=== PATIENT | male | born 1945 | race Caucasian/White ===

== ENCOUNTER → 2016-09-22 | Outpatient (CLI) | payer OTHER | LOC: CIMAGING 14:40 | PROVIDERS: ATTEND Internal Medicine | DX: M25.551 Pain in right hip (principal) | CPT/HCPCS: 73502-PO ==

== ENCOUNTER 2017-11-09 06:20 | Inpatient (IN) | payer OTHER ==
[2017-11-09] MEDS ORDERED: NS 1,000 ML IV ONE (06:27)
[2017-11-09] MEDS ORDERED: HYDROmorphONE/DILAUDID 1 MG/ML INJ ONE (06:48)
[2017-11-09] MEDS ORDERED: ONDANSETRON 4 MG/2 ML VIAL ONE (06:48)
[2017-11-09] MEDS ORDERED: HYDROmorphONE/DILAUDID 2 MG/ML INJ IVP ONE ×2 (06:49→07:44)
[2017-11-09] MEDS ORDERED: ONDANSETRON 4 MG/2 ML VIAL IVP ONE (06:49)
[2017-11-09 06:53] LABS: PLATELET COUNT 269 10^3/uL (150-400)
--- NOTE | 2017-11-09 07:03 | EDPHY ---
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 It seemed to improve edema to bit but returned around 2:00 a.m.. He has been up since then with cramping and uncomfortable diffuse pain. He has felt nauseous but has not vomited. No diarrhea. No urinary symptoms. He does have a history of left inguinal hernia with resultant nerve damage that caused chronic abdominal pain and tell he had that nerve "snipped" by Dr. Lipscomb several years ago. No chest pain. No shortness of breath. No fever. No diaphoresis. Severity: Moderate Modifying factors: None REVIEW OF SYSTEMS: Constitutional: denies: chills, fever, recent illness, recent injury EENTM: denies: blurred vision, double vision, nose congestion Respiratory: denies: cough, shortness of breath Cardiac: denies: chest pain, irregular heart rate, lightheadedness, palpitations Gastrointestinal/Abdominal: See HPI denies: diarrhea, nausea, vomiting, blood streaked stools Genitourinary: denies: dysuria, frequency, hematuria, pain Musculoskeletal: denies: joint pain, muscle pain Skin: denies: lesions, rash, jaundice, bruising Neurological: denies: headache, numbness, paresthesia, tingling, dizziness, weakness Hematologic/Lymphatic: denies: blood clots, easy bleeding, easy bruising Immunologic/allergic: denies: HIV/AIDS, transplant 10 systems reviewed and negative except as noted EXAM: GENERAL: Well-appearing, well-nourished and in no acute distress. HEAD: Atraumatic, normocephalic. EYES: Pupils equal round and reactive to light, extraocular movements intact, sclera anicteric, conjunctiva are normal. ENT: TMs normal, nares patent, oropharynx clear without exudates. Moist mucous membranes. NECK: Normal range of motion, supple without lymphadenopathy or JVD. LUNGS: Breath sounds clear to auscultation bilaterally and equal. No wheezes rales or rhonchi. HEART: Regular rate and rhythm without murmurs, rubs or gallops. ABDOMEN: Mildly distended diffusely, nontender, normoactive bowel sounds. No guarding, no rebound. No masses appreciated. BACK: No CVA tenderness, no spinal tenderness, step-offs or deformities EXTREMITIES: Normal range of motion, no pitting or edema. No clubbing or cyanosis. NEUROLOGICAL: Cranial nerves II through XII grossly intact. Normal speech, normal gait. 5/5 strength, normal movement in all extremities, normal sensation , normal reflexes PSYCH: Normal mood, normal affect. SKIN: Warm, dry, normal turgor, no visible rashes or lesions. Source: Patient Exam Limitations: No limitations - Personal History Current Tetanus/Diphtheria Vaccine: Yes Tetanus Vaccine Date: 2011 - Medical/Surgical History Hx Asthma: No Hx Chronic Respiratory Disease: No Hx Diabetes: No Hx Cardiac Disease: No Hx Renal Disease: No Hx Cirrhosis: No Hx Alcoholism: No Hx HIV/AIDS: No Other PMH: Chronic fatigue (in [place] for treatment). Hypothyroid/Nahed' s. anal sphincterotomy / fissure. l inguinal hernia. borderline HTN, GERD, BPH - Family History Significant Family History: No pertinent family hx - Social History Smoking Status: Former smoker Alcohol Use: Sober Drug Use: None Constitutional: Initial Vital Signs Temperature (C) 36.7 C 11/09/17 06:23 Heart Rate 80 11/09/17 06:23 Respiratory Rate 16 11/09/17 06:23 Blood Pressure 118/82 H 11/09/17 06:23 O2 Sat (%) 96 11/09/17 06:23 O2 Delivery Mode Room Air O2 (L/minute) 2 Allergies/Adverse Reactions: No Known Allergies Allergy (Verified 11/09/17 06:26) Home Medications: Medication Instructions Recorded ALPRAZolam [Xanax 0.5 MG (*)] 0.5 mg PO HS PRN 11/09/17 Esomeprazole Mag Trihydrate 40 mg PO DAILY 11/09/17 [Nexium] Ramipril [Altace] 10 mg PO DAILY 11/09/17 Tamsulosin HCl [Flomax 0.4 MG (*)] 0.4 mg PO DAILY 11/09/17 Thyroid,Pork [Westhroid] 97.5 mg PO DAILY 11/09/17 Medical Decision Making - Diagnostics EKG Interpretation: An EKG obtained and was read and documented in trace view. Please see trace view for full reading and report. Sinus rhythm, no acute ischemic changes Imaging Results: Imaging Impressions Abdomen CT 11/09/17 07:00 Impression: 1. Small bowel dilatation with transition point in the left pelvis, suggesting ileus or small bowel obstruction. 2. Diverticulosis without evidence of diverticulitis. 3. Additional findings as above. Findings discussed with Dr. Kalin Brand on November 09, 2017 at 0855 hours. Imaging: Discussed imaging studies w/ urologic nurse Radiologist ED Course/Re-evaluation: 9:00 a.m. We discussed the CT results. I recommended admission for pain control and IV fluids. The patient agrees. I discussed the case with hospital service who will admit. 10:30 a.m. I have consulted Dr. Stern. Differential Diagnosis: Partial list of the Differential diagnosis considered include but were not limited to; small-bowel obstruction, biliary disease and although unlikely based on the history and physical exam, I also considered pancreatic disease, peptic ulcer disease. - Data Points Laboratory Results: Laboratory Results 11/09/17 06:48 11/09/17 06:48 11/09/17 11/09/17 11/09/17 07:55 07:50 06:48 WBC RBC Hgb Hct MCV MCH MCHC RDW Plt Count MPV Neut % (Auto) Lymph % (Auto) [place] % (Auto) Eos % (Auto) Baso % (Auto) Nucleat RBC Rel Count Absolute Neuts (auto) Absolute Lymphs (auto) Absolute Monos (auto) Absolute Eos (auto) Absolute Basos (auto) Absolute Nucleated RBC Immature Gran % Immature Gran # PT 12.7 SEC SEC (12.0-15.0) INR 0.93 (0.83-1.16) APTT 27.5 SEC SEC (23.0-38.0) VBG Lactic Acid Sodium Potassium Chloride Carbon Dioxide Anion Gap BUN Creatinine Estimated GFR Glucose Calcium Phosphorus 3.7 mg/dL mg/dL (2.5-4.5) Total Bilirubin Conjugated Bilirubin Unconjugated Bilirubin AST ALT Alkaline Phosphatase Total Protein Albumin Lipase Urine Color YELLOW Urine Appearance CLEAR Urine pH 6.0 (5.0-7.5) Ur Specific [place] 1.011 (1.002-1.030) Urine Protein NEGATIVE (NEGATIVE) Urine Ketones NEGATIVE (NEGATIVE) Urine Blood NEGATIVE (NEGATIVE) Urine Nitrate NEGATIVE (NEGATIVE) Urine Bilirubin NEGATIVE (NEGATIVE) Urine Urobilinogen NEGATIVE EU EU (0.2-1.0) Ur Leukocyte Esterase NEGATIVE (NEGATIVE) Urine RBC 1-3 /hpf /hpf (0-3) Urine WBC 1-3 /hpf /hpf (0-3) Ur Epithelial Cells NONE SEEN /lpf /lpf (NONE-1+) Urine Glucose NEGATIVE (NEGATIVE) 11/09/17 11/09/17 11/09/17 06:48 06:48 06:48 WBC 8.70 10^3/uL 10^3/uL (3.80-9.50) RBC 5.40 10^6/uL 10^6/uL (4.40-6.38) Hgb 17.5 g/dL g/dL (13.7-17.5) Hct 50.1 % % (40.0-51.0) MCV 92.8 fL fL (81.5-99.8) MCH 32.4 pg pg (27.9-34.1) MCHC 34.9 g/dL g/dL (32.4-36.7) RDW 12.6 % % (11.5-15.2) Plt Count 269 10^3/uL 10^3/uL (150-400) MPV 9.2 fL fL (8.7-11.7) Neut % (Auto) 58.2 % % (39.3-74.2) Lymph % (Auto) 27.0 % % (15.0-45.0) [place] % (Auto) 10.3 % % (4.5-13.0) Eos % (Auto) 3.4 % % (0.6-7.6) Baso % (Auto) 0.8 % % (0.3-1.7) Nucleat RBC Rel Count 0.0 % % (0.0-0.2) Absolute Neuts (auto) 5.05 10^3/uL 10^3/uL (1.70-6.50) Absolute Lymphs (auto) 2.35 10^3/uL 10^3/uL (1.00-3.00) Absolute Monos (auto) 0.90 10^3/uL H 10^3/uL (0.30-0.80) Absolute Eos (auto) 0.30 10^3/uL 10^3/uL (0.03-0.40) Absolute Basos (auto) 0.07 10^3/uL 10^3/uL (0.02-0.10) Absolute Nucleated RBC 0.00 10^3/uL 10^3/uL (0-0.01) Immature Gran % 0.3 % % (0.0-1.1) Immature Gran # 0.03 10^3/uL 10^3/uL (0.00-0.10) PT REJ INR REJ APTT REJ VBG Lactic Acid Sodium 140 mEq/L mEq/L (135-145) Potassium 4.4 mEq/L mEq/L (3.3-5.0) Chloride 102 mEq/L mEq/L (97-110) Carbon Dioxide 27 mEq/l mEq/l (22-31) Anion Gap 11 mEq/L mEq/L (8-16) BUN 18 mg/dL mg/dL (7-23) Creatinine 1.0 mg/dL mg/dL (0.7-1.3) Estimated GFR > 60 Glucose 106 mg/dL H mg/dL (70-100) Calcium 10.2 mg/dL mg/dL (8.5-10.4) Phosphorus Total Bilirubin 0.6 mg/dL mg/dL (0.1-1.4) Conjugated Bilirubin 0.0 mg/dL mg/dL (0.0-0.5) Unconjugated Bilirubin 0.6 mg/dL mg/dL (0.0-1.1) AST 38 IU/L IU/L (17-59) ALT 47 IU/L IU/L (21-72) Alkaline Phosphatase 55 IU/L IU/L (38-126) Total Protein 7.7 g/dL g/dL (6.3-8.2) Albumin 4.4 g/dL g/dL (3.5-5.0) Lipase 81 IU/L IU/L (23-300) Urine Color Urine Appearance Urine pH Ur Specific [place] Urine Protein Urine Ketones Urine Blood Urine Nitrate Urine Bilirubin Urine Urobilinogen Ur Leukocyte Esterase Urine RBC Urine WBC Ur Epithelial Cells Urine Glucose 11/09/17 06:48 WBC RBC Hgb Hct MCV MCH MCHC RDW Plt Count MPV Neut % (Auto) Lymph % (Auto) [place] % (Auto) Eos % (Auto) Baso % (Auto) Nucleat RBC Rel Count Absolute Neuts (auto) Absolute Lymphs (auto) Absolute Monos (auto) Absolute Eos (auto) Absolute Basos (auto) Absolute Nucleated RBC Immature Gran % Immature Gran # PT INR APTT VBG Lactic Acid 1.4 mmol/L mmol/L (0.7-2.1) Sodium Potassium Chloride Carbon Dioxide Anion Gap BUN Creatinine Estimated GFR Glucose Calcium Phosphorus Total Bilirubin Conjugated Bilirubin Unconjugated Bilirubin AST ALT Alkaline Phosphatase Total Protein Albumin Lipase Urine Color Urine Appearance Urine pH Ur Specific [place] Urine Protein Urine Ketones Urine Blood Urine Nitrate Urine Bilirubin Urine Urobilinogen Ur Leukocyte Esterase Urine RBC Urine WBC Ur Epithelial Cells Urine Glucose Medications Given: Dextrose/Sodium Chloride (D5w Ns) 1,000 mls @ 100 mls/hr IV CONT BELLA Stop: 05/08/18 09:44 Last Admin: 11/09/17 10:46 Dose: 1,000 mls Pantoprazole Sodium (Protonix) 40 mg IVP DAILY BELLA Stop: 05/08/18 10:29 Last Admin: 11/09/17 10:43 Dose: 40 mg Discontinued Medications Hydromorphone HCl (Dilaudid) 0.5 mg IVP EDNOW ONE Stop: 11/09/17 06:50 Last Admin: 11/09/17 06:57 Dose: 0.5 mg Hydromorphone HCl (Dilaudid) 1 mg IVP EDNOW ONE Stop: 11/09/17 07:45 Last Admin: 11/09/17 09:22 Dose: 1 mg Sodium Chloride (Ns) 1,000 mls @ 0 mls/hr IV EDNOW ONE; Wide Open PRN Reason: Protocol Stop: 11/09/17 06:28 Last Admin: 11/09/17 06:56 Dose: 1,000 mls Influenza Virus Vaccine Quadrival (Flulaval Quad [id number] (6mo+)) 0.5 ml IM .ONCE ONE Stop: 11/09/17 13:53 Last Admin: 11/09/17 14:35 Dose: 0.5 ml Ondansetron HCl (Zofran) 4 mg IVP EDNOW ONE Stop: 11/09/17 06:50 Last Admin: 11/09/17 06:57 Dose: 4 mg Departure - Departure Disposition: [facility] Clinical Impression: Small bowel obstruction Abdominal pain Qualifiers: Abdominal location: generalized Qualified Code(s): R10.84 - Generalized abdominal pain Condition: Fair
[2017-11-09] MEDS ORDERED: IOPAMIDOL (ISOVUE-300) 100 ML BTL ONE (07:20)
[2017-11-09 08:06] LABS: INR 0.93 (0.83-1.16); PROTIME(PATIENT) 12.7 SEC (12.0-15.0)
--- NOTE | 2017-11-09 08:46 | CPEKG ---
Test Reason : OPEN Blood Pressure : / mmHG Vent. Rate : 068 BPM Atrial Rate : 068 BPM P-R Int : 197 ms QRS Dur : 099 ms QT Int : 422 ms P-R-T Axes : 052 090 036 degrees QTc Int : 449 ms Sinus rhythm Borderline right axis deviation Low voltage, extremity leads Confirmed by Kalin Brand ([id number]) on 11/09/2017 8:46:05 AM Referred By: Confirmed By:Kalin Brand
[2017-11-09] MEDS ORDERED: ACETAMINOPHEN 325 MG TAB PO PRN (09:32)
[2017-11-09] MEDS ORDERED: ONDANSETRON 4 MG/2 ML VIAL IVP PRN (09:32)
[2017-11-09] MEDS ORDERED: HYDROmorphONE/DILAUDID 1 MG/ML INJ IVP PRN (09:34)
[2017-11-09] MEDS ORDERED: LORazepam 2 MG/ML INJ IVP PRN (10:17)
[2017-11-09] MEDS: PANTOPRAZOLE SODIUM 40 MG VIAL IVP SCH (10:43)
--- NOTE | 2017-11-09 10:44 | GHP ---
DATE OF ADMISSION: 11/09/2017 CHIEF COMPLAINT: SBO. HISTORY OF PRESENT ILLNESS: The patient is a 72-year-old male with chronic fatigue syndrome, GERD, and 3 prior left inguinal surgeries, presenting with periumbilical pain. He noticed a twinge of pain yesterday afternoon that increased throughout the day. It was a low, constant, colicky sensation. He had a dinner of homemade pizza and was able to go to bed after pain resolved. However, at 2:30 a.m., he awoke after dreaming of having abdominal pain and realized he was truly in pain at that time. It was sharp in nature. He did have a small bowel movement, mild nausea. He belched a few times to help with the symptoms. Denies any recent significant weight gain or loss. No night sweats or fevers or chills. No vomiting. CT shows a small bowel obstruction, left pelvic region, diverticulosis. REVIEW OF SYSTEMS: I completed a 10-point review of systems, negative, except as noted in the HPI. PAST MEDICAL HISTORY: De Leon's esophagus, recent EGD, chronic fatigue syndrome , GERD, gastric ulcer, hypothyroid, Nahed's, typhoid, BPH, hypertension. FAMILY HISTORY: Noncontributory. PAST SURGICAL HISTORY: Inguinal hernia repair, complicated, warranting removal of some mesh. Subsequently had a surgery by Dr. Lipscomb to clean out the mesh that was protruding through the external ring. SOCIAL HISTORY: He is a retired traveling physician, lives in [place] with his . Occasional wine spritzer. No tobacco or illicits. HOME MEDICATIONS: Altace 10 mg daily, Natural Thyroid, Flomax 0.4 mg daily, Nexium 4 mg daily, Xanax 1.5 mg q.h.s. p.r.n. ALLERGIES: None. PHYSICAL EXAMINATION: VITAL SIGNS: Temperature 36.7, blood pressure 118/82, heart rate in the 60s, respirations 18, 95% on room air. GENERAL: Overweight male, no acute distress. HEENT: PERRLA. Moist mucous membranes. CV: Regular rate and rhythm. LUNGS: Clear. ABDOMEN: Soft, mildly distended, quiet bowel sounds throughout. No rebound or guarding. : No [place]. MUSCULOSKELETAL: 5/5 upper and lower extremity strength. NEURO: 2 through 12 intact. PSYCH: Alert and oriented x3. LABS: WBC 8, hemoglobin 17, hematocrit 40, platelets 269. Sodium 140, potassium 4.4, chloride 102, carbon dioxide 27, creatinine 1. Glucose is 106. LFTs within normal. Phos 3.7, lipase 81. Abdominal CT, a small bowel obstruction with transition point left pelvis. Diverticulosis without diverticulitis. ASSESSMENT AND PLAN: 1. Small bowel obstruction: no overt mass. Normal colonoscopies in past. Will admit for supportive care with IV fluids, p.r.n. antiemetics and opioids. Did have a small bowel movement this morning. Electrolytes are within normal. Surgery will be consulted. 2. Chronic fatigue syndrome, stable. 3. Gastroesophageal reflux disease. Will add intravenous proton pump inhibitor. 4. History of a gastric ulcer, stable. 5. Hypothyroidism. Restart orals once taking p.o. 6. Hypertension, normotensive here. 7. Diet, n.p.o., intravenous fluids. 8. Deep vein thrombosis prophylaxis, Lovenox. DISPOSITION: Warrants observation admission given acute SBO, warranting IV antiemetics, p.r.n. opioids, and surgical evaluation. /[id number]/MODL MTDD
[2017-11-09] MEDS: D5W NS 1,000 ML IV SCH ×2 (10:46→21:52)
--- NOTE | 2017-11-09 12:40 | PDMN ---
Medical Necessity Medical necessity: MCG: M210 intestinal obstruction - [address] shows ileus vs. SBO, diverticulosis L pelvic region. PT will be NPO with surgical consult pending. IVF, IV protonix, IV antiemetics and pain control prn.
--- NOTE | 2017-11-09 13:35 | GCON ---
DIAGNOSIS: Small bowel obstruction. 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 At approximately 5:45 yesterday afternoon, he had the onset of abdominal pain which was described as reji-umbilical. A component was greater in the lower abdomen than the upper abdomen. He nonetheless went to the football game. He ended up having dinner. He woke up at 2:30 in the morning with a dream that he was treating a patient in the ER with abdominal pain. He realized it was himself. He moved his bowels. Stool was harder than usual. He felt slightly better. He did begin burping. At 4 o' clock in the morning, the pain was worse. He opted to come to the emergency room, arriving at 9:15 this morning. A CAT scan was obtained which showed a minimally dilated proximal small bowel and a decompressed distal small bowel. A good transition point was not clear. Certainly, there were no hernias. He has not had any prior intraabdominal surgery. He did have a left inguinal hernia repair with a plug. Resulted in postop pain. He went to see a 2nd surgeon who was going to lyse the iliohypogastric nerve but got the lateral femoral cutaneous nerve instead. That neuropathy resolved. He still had his abdominal discomfort. Dr. Lipscomb recently removed the mesh and re-repaired the hernia. He has been better since that time. Note is made that he does have reflux. He does have De Leon's but without dysphagia (he has regular upper endoscopies. The last was within the last several months). He is on Nexium, but this discomfort is different than his prior issue. He has not had recent upper respiratory tract infection or diarrhea. There is no history of antibiotics. He has traveled to [place] recently. There is no history of inflammatory bowel disease. SOCIAL HISTORY: He smoked from ages [age] at 1 pack per day. He drinks one third of a glass of wine nightly. ALLERGIES: He has no known drug allergies. MEDICATIONS: He takes 65 mg tablets of natural thyroid 2 tablets 2 times a week and 1-1/2 tablets 5 times a week. He takes ramipril 10 mg daily for hypertension. He takes Flomax 0.5 mg q.h.s. He takes Nexium on a daily basis. He uses Xanax 1.5 mg q.h.s. p.r.n. sleep. PAST SURGICAL HISTORY: Include a tonsillectomy, lateral sphincterotomy for rectal fissure, and banding for his hemorrhoids. PAST SURGICAL HISTORY: There is no history of rheumatic fever, tuberculosis, hepatitis, or transfusions. REVIEW OF SYSTEMS: He has had chronic fatigue since 2005. He has had hypertension for 10 years. He has been hypothyroid since 1982 (Nahed's). He has had GERD for 10 years. He does have dry eye and takes eye drops and occasionally those require steroid eye drop. He has decreased hearing (Left is worse than his right). He has dental crowns. There are no limits on his activities. No history of steroid use. PHYSICAL EXAMINATION: GENERAL: He is awake and alert in no acute distress. NEUROLOGIC:He is oriented to person, place, and time. GCS is 15. BACK: His back is unremarkable. His spine is palpably normal. LUNGS: Clear to auscultation. LYMPH: There is no cervical or supraclavicular lymphadenopathy. NECK: There is no thyroid enlargement. There are no carotid bruits. There is no axillary or inguinal lymphadenopathy. CARDIAC: Shows S1, S2 to be normal. ABDOMEN: Does show normoactive bowel sounds. He is nontender with cough. There are no hernias identified. In palpation in all quadrants, he is 1 on a scale of 1-10 for discomfort. LABORATORY DATA: Reveal a white count of 8.7 with 58%. His hematocrit is 50. His INR is 0.93. PLAN: A TSH is pending. His CAT scan does show minimally dilated proximal small bowel and decompressed distal small bowel. I presume this is an adhesive process. He has had colonoscopies and has had no signs of diverticulosis in the past. I will recommend checking a TSH to make sure I am not missing hypomotility on that basis, but I do not think that would apply to such an acute cutoff. I do not see a volvulus or a swirl sign. I recommend that we just hold him n.p.o. except for meds, have him walk and get a followup film in the morning. If we do not see progression or he does not tell us of passing gas , we can try some Gastrografin at that point. I do not see a need to place an NG tube at this point. /[id number]/MODL MTDD
[2017-11-09] MEDS: ONDANSETRON DISINTEGRATING 4 MG TAB PO PRN ×2 (16:12→20:36)
[2017-11-09] MEDS ORDERED: TAMSULOSIN HCL 0.4 MG CAP PO SCH (16:45)
[2017-11-09] MEDS: TAMSULOSIN HCL 0.4 MG CAP PO SCH (17:36)
[2017-11-10 07:07] VITALS: BP 107/71
[2017-11-10] MEDS: PANTOPRAZOLE SODIUM 40 MG VIAL IVP SCH (08:12)
[2017-11-10] MEDS: TAMSULOSIN HCL 0.4 MG CAP PO SCH (08:14)
[2017-11-10] MEDS ORDERED: THYROID PORK 97.5 MG PO SCH (09:00)
[2017-11-10] MEDS ORDERED: ENOXAPARIN 40 MG/0.4 ML SYR SC SCH (09:00)
--- NOTE | 2017-11-10 09:31 | SOAPPROG ---
SOAP Progress Note Assessment/Plan: 11/10/17 09:27 PAD#1 Assessment: Passing gas and small amount of stool. Abdominal X-Ray does not show obstructive changes. TSH 11.6!! Plan: Try clear liquids Recommend a follow up SBFT when TSH has returned to normal to rule out any structural component. Subjective: I feel better. I'm passing small amounts of gas and stool Objective: Vital Signs Temp Pulse Resp BP Pulse Ox 36.6 C 70 14 107/71 91 L 11/10/17 07:06 11/10/17 07:06 11/10/17 07:06 11/10/17 07:06 11/10/17 07:06 11/09/17 11/10/17 11/11/17 05:59 05:59 05:59 Intake Total 600 Balance 600 PT 12.7 SEC (12.0-15.0) 11/09/17 07:50 INR 0.93 (0.83-1.16) 11/09/17 07:50 - Time Spent With Patient Time Spent With Patient: 15 Physical Exam - Physical Exam General Appearance: WD/WN, alert, no apparent distress Abdomen: non-tender, soft, other (hypoactive bowel sounds) Neuro/Psych: no motor/sensory deficits, alert, normal mood/affect, oriented x 3 ICD10 Worksheet Patient Problems: Problems Problem Status Onset Abdominal pain Acute Small bowel obstruction Acute Fever Acute
[2017-11-10] MEDS ORDERED: SENNOSIDES/DOCUSATE SODIUM TAB PO SCH (11:15)
--- NOTE | 2017-11-10 14:52 | GDS ---
DISCHARGE DIAGNOSES: 1. Small-bowel obstruction. 2. Hypothyroidism with elevated thyroid stimulating hormone. 3. Chronic fatigue syndrome. 4. De Leon's esophagus. 5. Gastroesophageal reflux disease. 6. History of gastric ulcer. 7. Nahed's. 8. Benign prostatic hypertrophy. 9. Hypertension. CONSULTATIONS: Surgery. INTERVENTIONS: None. 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 He noticed a twinge of pain after eating, which progressed throughout the day. He had a dinner of pizza and was able to go to bed without issue. At 2 a.m., he woke up with intense abdominal pain that was stabbing in nature. He did have a small bow el movement. Also complained of nausea. HOSPITAL COURSE BY PROBLEM: 1. Small bowel obstruction: CT demonstrated SBO with a transition point at the left pelvis. He als o noted diverticulosis without diverticulitis. He was treated conservatively with n.p.o. and fluids, and this has since resolved. He is now tolerating a liquid diet, passing gas. Repeat x-ray this mo rning demonstrated significant constipation. Advised him to drink fluids, and bowel regimen at home. 2. Chronic fatigue syndrome: Stable. 3. GERD: PPI. 4. Gastric ulcer: PPI. 5. Hypothyroidism: His TSH was elevated to 11, was normal in May. Query if he is being underdose d. I have written a prescription for Olden Thyroid 90 mg daily. He is to follow up with his PCP. 6. Hypertension. Resume home medications. DISPOSITION: Patient is stable for discharge home with his . MEDICATIONS: New medications: Olden Thyroid 90 mg daily. FOLLOWUP: PCP, Dr. Rashid. Repeat TSH 3 weeks. PHYSICAL EXAMINATION: VITAL SIGNS: Today, temperature 36.6, blood pressure 107/71, heart rate in th e 70s, respirations 14, 91% on room air. GENERAL: Well appearing, no acute distress. HEENT: PERRLA . Moist mucous membranes. CV: Regular rate and rhythm. LUNGS: Clear. He is ambulating without i ssue. NEURO: 2 through 12 intact. PSYCH: Alert and oriented x3. Time spent on discharge: Greater than 30 minutes discussing medications and followup plan with ryan bishop and discussed the case with Dr. Stern. /[id number]/MODL
== END 2017-11-10 12:52 | disposition home or self-care (01) | DRG 390 ==
LOC: F3E 10:15 → OBSVTOIN 12:31
PROVIDERS: ADMIT Internal Medicine; ATTEND Internal Medicine
DX: K56.609 Unspecified intestinal obstruction, unspecified as to partial versus complete obstruction (principal); E86.9 Volume depletion, unspecified; E03.9 Hypothyroidism, unspecified; R53.82 Chronic fatigue, unspecified; K21.9 Gastro-esophageal reflux disease without esophagitis; K22.70 Barrett's esophagus without dysplasia; E06.3 Autoimmune thyroiditis; N40.0 Benign prostatic hyperplasia without lower urinary tract symptoms; I10 Essential (primary) hypertension; K57.30 Diverticulosis of large intestine without perforation or abscess without bleeding; Z23 Encounter for immunization
CPT/HCPCS: 96374; G0008; J1170; J1650; J2060; J2405; Q9967

== ENCOUNTER → 2017-11-30 | Outpatient (CLI) | payer OTHER | LOC: FIMAGING 08:11 | PROVIDERS: ATTEND Internal Medicine | DX: K59.00 Constipation, unspecified (principal); Z87.19 Personal history of other diseases of the digestive system ==

== ENCOUNTER 2018-04-21 14:57 | Emergency (ER) | payer OTHER ==
--- NOTE | 2018-04-21 15:37 | EDPHY ---
H & P Stated Complaint: flu s/s. 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 Has been suffering from upper respiratory symptoms for the last several weeks but had been improving. He had been traveling in [facility]. He thought he had improved but symptoms began getting worse 3 days ago. Cough has been nonproductive. He does have some sinus congestion postnasal drip. He did check his oxygen saturations at home and at 1 point felt they were low but then they were normal again. He was into his lungs and thought he heard some crackles at the right base. Some subjective chills at home. No documented fever. No nausea or vomiting. No chest pain. Some very slight shortness of breath. ROS: 10 systems were reviewed and were negative except those elements noted in the HPI. PMH: Hypothyroidism, insomnia, GERD Social History: No smoking, occasional alcohol, does use CBD to help with sleep Family History: non-contributory Physical Exam: Gen: Awake, Alert, No Distress HEENT: Ears: Right ear has cerumen, left ear normal Nose: no rhinorrhea Eyes: PERRLA, EOMI Mouth: Moist mucosa Neck: Supple, no JVD Chest: nontender, lungs clear to auscultation, very mild and expiratory squeak, sounds upper respiratory Heart: S1, S2 normal, no murmur Abd: Soft, non-tender, no guarding Back: no CVA tenderness, no midline tenderness Ext: no edema, non-tender Skin: no rash Neuro: CN II-XII intact, Sensation grossly intact, Strength 5/5 in bilateral upper and lower extremities - Personal History Current Tetanus Diphtheria and Acellular Pertussis (TDAP): Yes Tetanus Vaccine Date: 2011 - Medical/Surgical History Hx Asthma: No Hx Chronic Respiratory Disease: No Hx Diabetes: No Hx Cardiac Disease: No Hx Renal Disease: No Hx Cirrhosis: No Hx Alcoholism: No Hx HIV/AIDS: No Hx Splenectomy or Spleen Trauma: No Other PMH: Chronic fatigue (in [place] for treatment). Hypothyroid/Nahed' s. anal sphincterotomy / fissure. l inguinal hernia. borderline HTN, GERD, BPH - Social History Smoking Status: Former smoker Constitutional: Initial Vital Signs Temperature (C) 36.8 C 04/21/18 15:10 Heart Rate 80 04/21/18 15:10 Respiratory Rate 18 04/21/18 15:10 Blood Pressure 98/70 L 04/21/18 15:10 O2 Sat (%) 93 04/21/18 15:10 Allergies/Adverse Reactions: No Known Allergies Allergy (Verified 04/21/18 15:16) Home Medications: Medication Instructions Recorded ALPRAZolam [Xanax 0.5 MG (*)] 0.5 mg PO HS PRN 11/09/17 Esomeprazole Mag Trihydrate 40 mg PO DAILY 11/09/17 [Nexium] Ramipril [Altace] 10 mg PO DAILY 11/09/17 Tamsulosin HCl [Flomax 0.4 MG (*)] 0.4 mg PO DAILY 11/09/17 Thyroid [[place] Thyroid 60 MG (*)] 90 mg PO DAILY10 #60 tab 11/10/17 Azithromycin [Zithromax] 250 mg PO DAILY #6 tab 04/21/18 Medical Decision Making ED Course/Re-evaluation: No focal findings on chest x-ray. Patient is afebrile. Oxygen saturations are excellent. Given the duration of his symptoms and the mild and expiratory wheeze I will provide him with a prescription for azithromycin. He will follow up with his primary care doctor in a week if symptoms are not improving. Departure - Departure Disposition: Home, Routine, Self-Care Clinical Impression: Acute bronchitis Condition: Good Instructions: Acute Bronchitis (ED) Additional Instructions: Follow up with your primary care physician in 4-5 days if your symptoms are not improving. Referrals: Ander Rashid MD [Primary Care Provider] - As per Instructions Prescriptions: Azithromycin [Zithromax] 250 mg PO DAILY #6 tab
[2018-04-21 16:34] VITALS: BP 96/63
== END 2018-04-21 16:25 | disposition home or self-care (01) ==
LOC: CED 14:57
DX: J20.9 Acute bronchitis, unspecified (principal)
CPT/HCPCS: 71046-PO; 99283-ER